=== PATIENT | male | born 1945 | race Caucasian/White ===

== ENCOUNTER 2025-09-02 21:19 | Emergency (ER) | payer MEDICARE ==
[~2025-09-02] VITALS: Ht 167.6 cm; Wt 63.6 kg
[2025-09-02 21:35] VITALS: BP 160/71; PULSE 74; RESP 18; TEMP 98.6; O2SAT 98
[2025-09-02 22:50] LABS: APPEARANCE,URINE CLEAR (CLEAR); GLUCOSE, URINE (UA) NEGATIVE (NEGATIVE); LEUKOCYTE ESTERASE ,URINE NEGATIVE (NEGATIVE); NITRATE,URINE NEGATIVE (NEGATIVE); OCCULT BLOOD,URINE NEGATIVE (NEGATIVE); SPECIFIC GRAVITIY, URINE 1.015 (1.003-1.030)
[2025-09-02 23:12] LABS: PLATELET COUNT (AUTO) 242 K/uL (150-450); RED BLOOD CELL COUNT(AUTO) 4.21 MIL/uL (4.50-5.90); RED CELL DISTRIBUTION WIDTH 15.1 % (11.5-14.5); WHITE BLOOD COUNT (AUTO) 11.0 K/uL (4.5-11.0)
[2025-09-02 23:21] LABS: CALCIUM, TOTAL 10.0 mg/dL (8.8-10.5); CREATININE 1.03 mg/dL (0.60-1.30); GLOMERULAR FILTR. RATE CALC > 60 mL/min (>60); GLUCOSE,RANDOM 137 mg/dL (70-110); SODIUM SERUM 136 mmol/L (136-145); UREA NITROGEN, BLOOD 26 mg/dL (7-18)
[2025-09-02 23:25] LABS: ASPARTATE AMINOTRANSFERASE 15.0 U/L (15-37); TOTAL PROTEIN, SERUM 7.0 g/dL (6.4-8.2)
[2025-09-02 23:32] LABS: TROPONIN I-HIGH SENSITIVITY 10 ng/L (<76)
[2025-09-03] MEDS: PB/HYOSCY/ATR/SCOP/LIDO/MAALOX 55 ML BOTTLE PO ONE (00:16)
== END 2025-09-03 00:54 | disposition home or self-care (01) ==
LOC: EMS 21:22
DX: K29.70 Gastritis, unspecified, without bleeding (principal); K21.00 Gastro-esophageal reflux disease with esophagitis, without bleeding
CPT/HCPCS: 80048; 80076; 81003; 83690; 84484; 85025; 93005; 99284